=== PATIENT | male | born 1980 | race Caucasian/White ===

== ENCOUNTER 2018-01-01 20:03 | Emergency (ER) | payer MEDICARE, OTHER ==
[~2018-01-01] VITALS: Ht 188 cm; Wt 127.0 kg
[~2018-01-01 20:03] MED LIST: LAMO; LEVE100S; UNKNWON; VIMPAT
[2018-01-01] MEDS ORDERED: SODIUM CHLORIDE 0.9% 1,000 ML IV ONE (20:26)
[2018-01-01] MEDS ORDERED: LEVETIRACETAM 500MG PREMIX 100 ML IV ONE (20:30)
[2018-01-01] MEDS ORDERED: KETOROLAC 15MG/ML VIAL IV ONE (21:15)
[2018-01-01 22:18] LABS: CHLORIDE 105 mEq/L (98-107)
[2018-01-01 22:19] LABS: HEMATOCRIT. 47.4 % (42.0-52.0); HEMOGLOBIN. 16.9 g/dL (14.0-18.0); MEAN CORPUSCULAR HEMOGLOBIN 31.9 pg (28.0-32.0); MEAN CORPUSCULAR VOLUME 89.8 fL (80.0-94.0); MEAN PLATELET VOLUME 7.9 fl (7.4-10.4); PLATELET 278 x1000/uL (130-400); RED BLOOD CELL COUNT 5.28 mill/uL (4.7-6.1)
[2018-01-01 22:29] LABS: VALPROIC ACID < 3.0 ug/mL (50-100)
[2018-01-01] MEDS ORDERED: PHENYTOIN SODIUM EXTENDED 100MG CAPSULE PO ONE (22:30)
[2018-01-01 22:49] LABS: PLATELET ESTIMATE NORMAL
[2018-01-01] MEDS ORDERED: ONDANSETRON HCL 4MG/2ML INJ IV STA (22:51)
[2018-01-01] MEDS ORDERED: MORPHINE SULFATE 4 MG/ML CPJ (NOT FOR IM USE) IV STA (22:51)
[2018-01-01] MEDS ORDERED: DIVALPROEX SODIUM 250MG DR TABLET PO ONE (23:00)
[2018-01-02 00:13] VITALS: BP 122/74
== END 2018-01-02 00:47 | disposition home or self-care (01) ==
LOC: ER 20:16
DX: G40.89 Other seizures (principal); R53.1 Weakness; R42 Dizziness and giddiness
CPT/HCPCS: 36415; 72128; 72131; 80053; 80165; 80185; 85025; 96374; 96375; 99291; J1885; J1953; J2270; J2405; J7030

== ENCOUNTER 2019-01-07 20:16 | Emergency (ER) | payer BC, MEDICARE ==
[~2019-01-07] VITALS: Ht 175.3 cm; Wt 113.0 kg
[2019-01-07 20:53] VITALS: BP 138/72
[2019-01-07] MEDS ORDERED: LEVETIRACETAM 500MG TABLET PO ONE (21:15)
[2019-01-07] MEDS ORDERED: LAMOTRIGINE 100MG TABLET PO SCH (21:15)
== END 2019-01-07 21:48 | disposition home or self-care (01) ==
LOC: ER 20:16
DX: G40.909 Epilepsy, unspecified, not intractable, without status epilepticus (principal); S00.531A Contusion of lip, initial encounter; X58.XXXA Exposure to other specified factors, initial encounter; Y93.89 Activity, other specified; Y92.89 Other specified places as the place of occurrence of the external cause; Z91.14 Patient's other noncompliance with medication regimen; R03.0 Elevated blood-pressure reading, without diagnosis of hypertension
CPT/HCPCS: 99283

== ENCOUNTER 2021-05-04 12:04 | Emergency (ER) | payer SELFPAY ==
[~2021-05-04] VITALS: Ht 175.3 cm; Wt 118.0 kg
[2021-05-04 12:17] VITALS: BP 132/87
[2021-05-04] MEDS ORDERED: LAM1 MT (12:29)
[2021-05-04] MEDS ORDERED: LEVE10006 MT (12:29)
== END 2021-05-04 14:43 | disposition home or self-care (01) ==
LOC: ER 14:08
DX: R56.9 Unspecified convulsions (principal); Z79.899 Other long term (current) drug therapy
CPT/HCPCS: 99282